=== PATIENT | female | born 1965 | race Caucasian/White ===

== ENCOUNTER 2018-02-17 20:13 | Emergency (ER) | payer SELFPAY ==
[2018-02-17] MEDS ORDERED: DEXAMETHASONE SOD PHOSPHATE 10 MG/ML 1 ML VIAL IM STA (21:16)
[2018-02-17] MEDS ORDERED: CIPROFLOXACIN-DEXAMETH 0.3-0.1% DROPS 7.5 ML BTL RIGHT EAR STA (21:16)
[2018-02-17] MEDS ORDERED: AMOXIC-POT CLAV 875MG STARTER 2 EACH TABLET PO STA (21:16)
[2018-02-17] MEDS ORDERED: AMOXIC-POT CLAV 875-125MG 1 EACH TAB PO STA (21:16)
--- NOTE | 2018-02-17 23:08 | CT ---
EXAMINATION TYPE: CT iac wo con DATE OF EXAM: 02/17/2018 COMPARISON: None HISTORY: right sided swelling and pain CT DLP: 142.70mGycm Automated exposure control for dose reduction was used. FINDINGS: There is incomplete pneumatization of the mastoid sinuses. There is no evidence of a cerebe llopontine angle mass. Internal auditory canals appear normal. External auditory canals appear normal . There is normal aeration of the epitympanic recess. Middle ear cavities have normal aeration. I see no focal bone destruction. Temporomandibular joints appear intact. I see no evidence of a soft tissu e mass. IMPRESSION: Incomplete aeration of the mastoid sinuses could be normal variation. Otherwise negative exam. Normal aeration of the middle ear and epitympanic recess.
--- NOTE | 2018-02-17 23:12 | ED ---
General Adult HPI - General Chief complaint: Neuro Symptoms/Deficit Stated complaint: facial swelling Time Seen by Provider: 02/17/18 20:32 Source: patient, RN notes reviewed, old records reviewed Mode of arrival: ambulatory Limitations: no limitations - History of Present Illness Initial comments: This is a 52-year-old female the ER for evaluation of right-sided facial swelling right-sided ear pain and numbness and tingling on the right side of her face. Patient has no significant concerning medical history denies any recent fevers cough or congestion no sore throat. Patient was concern for numbness right-sided of her mouth, no change in speech no aphasia no slurred speech. No prior history of high blood pressure control diabetes. MD Complaint: Facial swelling -: days(s) Location: face (Right anterior auricular) Radiation: neck Severity scale (1-10): 2 Quality: burning Consistency: constant Improves with: none Worsens with: none Treatments Prior to Arrival: none - Related Data Previous Rx's Medication Instructions Recorded Amoxic-Pot Clav 875-125Mg 1 tab PO Q12HR #20 tablet 02/17/18 [Augmentin 875-125] Allergies Allergy/AdvReac Type Severity Reaction Status Date / Time No Known Allergies Allergy Verified 02/17/18 20:26 Review of Systems ROS Statement: Those systems with pertinent positive or pertinent negative responses have been documented in the HPI. ROS Other: All systems not noted in ROS Statement are negative. Past Medical History Past Medical History: Thyroid Disorder History of Any Multi-Drug Resistant Organisms: None Reported Past Surgical History: Hysterectomy Past Psychological History: No Psychological Hx Reported Smoking Status: Current every day smoker Past Alcohol Use History: None Reported Past Drug Use History: None Reported General Exam - General Exam Comments Initial Comments: Patient does have anterior lymphadenopathy preauricular Limitations: no limitations General appearance: alert, in no apparent distress Head exam: Present: atraumatic, normocephalic, normal inspection Eye exam: Present: normal appearance, PERRL, EOMI. Absent: scleral icterus, conjunctival injection, periorbital swelling ENT exam: Present: normal exam, mucous membranes moist. Absent: TM's normal bilaterally (Patient does have otitis externa, erythema) Neck exam: Present: normal inspection. Absent: tenderness, meningismus, lymphadenopathy Respiratory exam: Present: normal lung sounds bilaterally. Absent: respiratory distress, wheezes, rales, rhonchi, stridor Cardiovascular Exam: Present: regular rate, normal rhythm, normal heart sounds. Absent: systolic murmur, diastolic murmur, rubs, gallop, clicks GI/Abdominal exam: Present: soft, normal bowel sounds. Absent: distended, tenderness, guarding, rebound, rigid Extremities exam: Present: normal inspection, full ROM, normal capillary refill. Absent: tenderness, pedal edema, joint swelling, calf tenderness Back exam: Present: normal inspection Neurological exam: Present: alert, oriented X3, CN II-XII intact Psychiatric exam: Present: normal affect, normal mood Skin exam: Present: warm, dry, intact, normal color. Absent: rash Course Vital Signs 02/17/18 02/17/18 20:24 23:25 Temperature 99.4 F 97.7 F Pulse Rate 89 71 Respiratory 18 20 Rate Blood Pressure 158/87 121/73 O2 Sat by Pulse 97 97 Oximetry - Reevaluation(s) Reevaluation #1: Patient is without significant neurological complaint, has no complaints of fevers or headache EKG Findings - EKG Comments: EKG Findings:: EKG shows sinus rhythm rate of 70, TN 172, QRS 80, QTC 450 Medical Decision Making - Medical Decision Making 52 female the ER with otitis externa and lymphadenopathy. Patient will be discharged home on antibiotics - Radiology Data Radiology results: report reviewed (CT IAC is negative for acute disease), image reviewed Disposition Clinical Impression: Right otitis externa, Lymphadenopathy Disposition: HOME SELF-CARE Condition: Good Instructions: Otitis Externa (ED) Prescriptions: Amoxic-Pot Clav 875-125Mg [Augmentin 875-125] 1 tab PO Q12HR #20 tablet Is patient prescribed a controlled substance at d/c from ED?: No Referrals: Nonstaff,Physician [Primary Care Provider] - 1-2 days
[2018-02-17 23:32] VITALS: BP 121/73; PULSE 71; RESP 20; TEMP 97.7
== END 2018-02-17 23:25 | disposition home or self-care (01) ==
LOC: EC 20:13
DX: H60.91 Unspecified otitis externa, right ear (principal); F17.200 Nicotine dependence, unspecified, uncomplicated
CPT/HCPCS: 93005; 70480; 99284; 96372; J1100